=== PATIENT | female | born 2000 | race Asian ===

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

== ENCOUNTER 2022-07-01 12:23 | Inpatient (IN) ==
[2022-07-01 17:36] LABS: ABS Monocytes 0.1 10^3/ul (0-0.8); ABS Neutrophils 1.5 10^3/ul (1.5-7.7); Eosinophil % 0.1 %; Hematocrit 31 % (35-47); Hemoglobin 11.3 g/dL (12.0-16.0); Lymphocyte % 36.3 %; Mean Corpuscular HGB Conc 37 g/dL (31-36); Mean Corpuscular Hemoglobin 34 pg (27-31); Mean Corpuscular Volume 94 fL (80-97); Mean Platelet Volume 6.9 fL (7.4-10.4); Nucleated Red Blood Cells % 0.2; Platelet Count 162 10^3/uL (150-450); Red Cell Distribution Width 14 % (10-15); White Blood Count 2.6 10^3/uL (3.5-10.8)
[2022-07-01 18:17] LABS: Albumin 4.2 g/dL (3.2-5.2); Calcium 9.1 mg/dL (8.6-10.3); Potassium 4.2 mmol/L (3.5-5.0); Total Bilirubin 0.7 mg/dL (0.2-1.0)
[2022-07-01 18:23] LABS: Phosphorus 3.5 mg/dL (2.5-5.0); Total Protein 6.7 g/dL (6.4-8.9)
[2022-07-01 18:24] LABS: Albumin/Globulin Ratio 1.7 (1-3); Globulin 2.5 g/dL (2-4)
[2022-07-01] MEDS: Calcium Carb (TUMS) 500 mg CHEW TAB PO SCH (19:20)
[2022-07-01] MEDS: Vitamin THERAPEUTIC TAB PO SCH (19:22)
[2022-07-01] MEDS ORDERED: NS 0.9% 500 ml BAG 500 ML IV ONE (19:43)
[2022-07-01] MEDS ORDERED: Dextrose 50% Syringe 50 ml 25 GM/50 ML SYRINGE IV PUSH PRN (20:06)
[2022-07-02 06:48] LABS: ABS Monocytes 0.1 10^3/ul (0-0.8); ABS Neutrophils 1.1 10^3/ul (1.5-7.7); Eosinophil % 0.5 %; Hematocrit 29 % (35-47); Hemoglobin 10.9 g/dL (12.0-16.0); Mean Corpuscular HGB Conc 38 g/dL (31-36); Mean Corpuscular Hemoglobin 35 pg (27-31); Mean Corpuscular Volume 94 fL (80-97); Mean Platelet Volume 7.3 fL (7.4-10.4); Nucleated Red Blood Cells % 0.1; Platelet Count 159 10^3/uL (150-450); Red Cell Distribution Width 14 % (10-15); White Blood Count 2.3 10^3/uL (3.5-10.8)
[2022-07-02 07:03] LABS: Albumin 3.8 g/dL (3.2-5.2); Albumin/Globulin Ratio 1.8 (1-3); Calcium 8.9 mg/dL (8.6-10.3); Globulin 2.1 g/dL (2-4); Phosphorus 3.9 mg/dL (2.5-5.0); Potassium 4.2 mmol/L (3.5-5.0); Total Bilirubin 0.6 mg/dL (0.2-1.0); Total Protein 5.9 g/dL (6.4-8.9)
[2022-07-02] MEDS: Calcium Carb (TUMS) 500 mg CHEW TAB PO SCH ×2 (08:00→08:05)
[2022-07-02] MEDS: Vitamin THERAPEUTIC TAB PO SCH (08:05)
[2022-07-02] MEDS ORDERED: Ketorolac 10 mg TAB (NF) PO ONE (14:09)
[2022-07-02] MEDS ORDERED: Lidocaine PATCH 5% PATCH TRANSDERM SCH (15:00)
[2022-07-03] MEDS: Calcium Carb (TUMS) 500 mg CHEW TAB PO SCH (08:58)
[2022-07-03] MEDS: Vitamin THERAPEUTIC TAB PO SCH (08:58)
[2022-07-04 05:59] LABS: Albumin 3.7 g/dL (3.2-5.2); Albumin/Globulin Ratio 1.7 (1-3); Calcium 8.6 mg/dL (8.6-10.3); Globulin 2.2 g/dL (2-4); Magnesium 1.9 mg/dL (1.9-2.7); Phosphorus 3.1 mg/dL (2.5-5.0); Potassium 4.3 mmol/L (3.5-5.0); Total Bilirubin 0.6 mg/dL (0.2-1.0); Total Protein 5.9 g/dL (6.4-8.9); eGFR CKD-EPI 127.4 (>60)
[2022-07-04] MEDS ORDERED: NS 0.9% 500 ml BAG 500 ML IV ONE (08:07)
[2022-07-04] MEDS: Vitamin THERAPEUTIC TAB PO SCH (08:17)
[2022-07-04] MEDS: Calcium Carb (TUMS) 500 mg CHEW TAB PO SCH (08:18)
[2022-07-05 05:38] LABS: Albumin 3.7 g/dL (3.2-5.2); Albumin/Globulin Ratio 1.9 (1-3); Calcium 8.4 mg/dL (8.6-10.3); Magnesium 1.8 mg/dL (1.9-2.7); Phosphorus 3.1 mg/dL (2.5-5.0); Potassium 4.1 mmol/L (3.5-5.0); Total Bilirubin 0.6 mg/dL (0.2-1.0); Total Protein 5.7 g/dL (6.4-8.9); eGFR CKD-EPI 129.9 (>60)
[2022-07-05] MEDS ORDERED: Magnesium Sulfate IV 1GM/100ML 1 GM/100 ML BAG IV ONE (07:47)
[2022-07-05] MEDS: Calcium Carb (TUMS) 500 mg CHEW TAB PO SCH (08:40)
[2022-07-05] MEDS: Vitamin THERAPEUTIC TAB PO SCH (08:44)
[2022-07-05 11:05] LABS: Osmolality Serum 261 mOsm/kg (275-295)
[2022-07-05 13:27] LABS: Urine Osmo 191 mOsm/kg (150-1150)
[2022-07-06 05:56] LABS: Albumin 3.8 g/dL (3.2-5.2); Albumin/Globulin Ratio 1.8 (1-3); Calcium 8.5 mg/dL (8.6-10.3); Globulin 2.1 g/dL (2-4); Magnesium 1.9 mg/dL (1.9-2.7); Potassium 4.3 mmol/L (3.5-5.0); Total Bilirubin 0.6 mg/dL (0.2-1.0); Total Protein 5.9 g/dL (6.4-8.9); eGFR CKD-EPI 128.4 (>60)
[2022-07-06] MEDS: Calcium Carb (TUMS) 500 mg CHEW TAB PO SCH (10:48)
[2022-07-06] MEDS: Vitamin THERAPEUTIC TAB PO SCH (10:53)
[2022-07-07 05:51] VITALS: BP 113/72
[2022-07-07 06:19] LABS: Albumin/Globulin Ratio 1.8 (1-3); Globulin 2.2 g/dL (2-4); Magnesium 1.9 mg/dL (1.9-2.7); Phosphorus 3.3 mg/dL (2.5-5.0); Potassium 4.6 mmol/L (3.5-5.0); Total Bilirubin 0.6 mg/dL (0.2-1.0); Total Protein 6.2 g/dL (6.4-8.9); eGFR CKD-EPI 129.4 (>60)
[2022-07-07 06:43] LABS: Hematocrit 31 % (35-47); Mean Corpuscular HGB Conc 35 g/dL (31-36); Mean Corpuscular Hemoglobin 32 pg (27-31); Mean Corpuscular Volume 91 fL (80-97); Mean Platelet Volume 7.1 fL (7.4-10.4); Platelet Count 167 10^3/uL (150-450); Red Blood Count 3.42 10^6 /uL (3.70-4.87); Red Cell Distribution Width 14 % (10-15); White Blood Count 2.7 10^3/uL (3.5-10.8)
== END 2022-07-07 08:10 | disposition short-term general hospital (02) | DRG 759 ==
LOC: ED 12:23 → EDHOLD 16:08 → SUATTDRO 16:08 → MEDTELE 21:24
PROVIDERS: ADMIT Internal Medicine; ATTEND Internal Medicine